=== PATIENT | male | born 1985 | race Caucasian/White ===

== ENCOUNTER 2018-05-22 00:28 | Emergency (ER) | payer OTHER ==
--- NOTE | 2018-05-22 00:53 | EDPHY ---
H & P Time Seen by Provider: 05/22/18 00:46 Smoking Status: Former smoker Constitutional: Initial Vital Signs Temperature (C) 37.0 C 05/22/18 00:38 Heart Rate 91 05/22/18 00:38 Respiratory Rate 16 05/22/18 00:38 Blood Pressure 117/74 05/22/18 00:38 O2 Sat (%) 94 05/22/18 00:38 O2 Delivery Mode Room Air Allergies/Adverse Reactions: Penicillins Allergy (Verified 05/22/18 00:36) Home Medications: Medication Instructions Recorded Adderall Xr 10 mg Capsule 05/22/18 Cyclobenzaprine [Cyclobenzaprine 05/22/18 HCl] LamICTAL 100 MG (*) 05/22/18 Naproxen 05/22/18 clonazePAM [Clonazepam] 05/22/18 Departure - Departure Referrals: Patient,NotPresent [Primary Care Provider] - As per Instructions
[2018-05-22] MEDS ORDERED: CLINDAMYCIN 150MG PREPACK#6 BTL TAKEHOME ONE (01:03)
--- NOTE | 2018-05-22 01:09 | EDPHY ---
H & P Time Seen by Provider: 05/22/18 00:46 HPI/ROS: CHIEF COMPLAINT: tooth ache HISTORY OF PRESENT ILLNESS: Severe lower right mid tooth pain. He notes that the cusps fell off this tooth approximately several weeks ago. He has had no trauma per se. It really was not bother him until 2 days ago. He was able to sleep last night. However the pain is so intense he is unable to sleep tonight despite using excessive doses of ibuprofen. He states it is severe, nonradiating intense sharp pain. He has had no discharge. There has been no foul odor. He has had no difficulty swallowing, nor problems open his mouth. There is no pain to the floor the mouth. As to substance abuse risk going forward, he is at risk due to his underlying bipolar disease as well as anxiety disorder. I have queried the [place] drug monitoring program and he has received six prescriptions for narcotics in the last 12 months: Oxy Scripts #5, 30 tablets October - December = he relates this was for when he injured his back as he has history of 3 ruptured discs. Hydrocodone #1, 5 tablets October. Regarding his anxiety disorder: It is well controlled. He takes Klonopin p.r.n. Which is less than once daily. He is currently in therapy. Further he does have a history element of bed puts him at risk for PTSD but he states that that is under control as well. Discharge no Trismus none Trauma no REVIEW OF SYSTEMS: Gen: No fevers or chills. Respiratory: No cough, no dyspnea. Smoking Status: Former smoker Physical Exam: General: Well-developed well-nourished. Nontoxic. Anxious. As into the room he is huddled in the arms of his girlfriend or spouse and rocking. Holding the side of his right jaw. HEENT: Membranes moist. No foul odor. There is no trismus. There is no drainage within the mouth nor pointing at the alveolar ridge. . There is moderate dental decay. Submandibular adenopathy is noted. There is no actual soft tissue swelling present to the jaw though it is tender both on the alveolar ridge as well as externally. He is able swallow well. Constitutional: Initial Vital Signs Temperature (C) 37.0 C 05/22/18 00:38 Heart Rate 91 05/22/18 00:38 Respiratory Rate 16 05/22/18 00:38 Blood Pressure 117/74 10/21/18 00:38 O2 Sat (%) 94 05/22/18 00:38 O2 Delivery Mode Room Air Allergies/Adverse Reactions: Penicillins Allergy (Verified 05/22/18 00:36) Home Medications: Medication Instructions Recorded Adderall Xr 10 mg Capsule 05/22/18 Clindamycin 300 mg PO QID 10 Days cap 05/22/18 Cyclobenzaprine [Cyclobenzaprine 05/22/18 HCl] LamICTAL 100 MG (*) 05/22/18 Naproxen 05/22/18 Oxycodone HCl 10 mg PO Q6H PRN #4 capsule 05/22/18 clonazePAM [Clonazepam] 05/22/18 Medical Decision Making ED Course/Re-evaluation: On initial encounter I recommended a inferior alveolar nerve block.: Sterile technique. At the inferior alveolar nerve location trigone there was 3 cc of 0.5 Marcaine placed without epinephrine. He tolerated this poorly, reflective of poor pain tolerance. Nonetheless, overtime he started getting moderate relief. Engaged in discussion regarding risks of substance abuse, as no doubt the block will wear off and the Ibuprofen was not effective earlier and the Clinda will take some time to kick in. He has no prior personal history or family history. However his bipolar disease putting at risk. He did take 1 of the Klonopin is a of his spouse so as to medicate the pain tonight. He has been taking ibuprofen 800 mg three times daily. 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 However, he has not been taking Tylenol along with a. Ultimately he suggested that I give him only 3 tablets of pain medicine to go, as he has been on 10 mg in th past ( last dose in December) he will get two of the 5 mg to go and an Rx for 4 , 5mg. Differential Diagnosis: Diagnostic considerations include, but are not limited to, the following: Abscess, facial abscess, facial cellulitis, Matthieu's Angina, Retropharyngeal abscess, deep space facial infection, dental caries. - Data Points Medications Given: Discontinued Medications Clindamycin (Cleocin 150 Mg Prepack#6) 1 btl TAKEHOME EDNOW ONE PRN Reason: Protocol Stop: 05/22/18 01:04 Last Admin: 05/22/18 01:19 Dose: 1 btl Oxycodone HCl (Oxycodone Ir) 20 mg PO EDNOW ONE Stop: 05/22/18 01:40 Last Admin: 05/22/18 01:53 Dose: 20 mg Departure - Departure Disposition: Home, Routine, Self-Care Clinical Impression: Dental abscess Condition: Good Instructions: Clindamycin (By mouth), Oxycodone, Rapid Release (By mouth), Dental Abscess (ED) Additional Instructions: Avoiding hot or cold items as this may likely stimulate the tooth, Tylenol and Advil works well together in combination: 1000 mg Tylenol and 600 mg Advil every 6 hours as needed for the pain. We have sent home 2 tablets of Oxy 5 mg for the pain when the anesthetic wears off. There is also a prescription for 4 more tablets later during the day to help you until the clindamycin starts working. While on the clindamycin, do take yogurt with active cultures 3 times daily to forego bowel problems and diarrhea. If he developed diarrhea, call your family doctor immediately Referrals: Patient,NotPresent [Primary Care Provider] - As per Instructions Prescriptions: Clindamycin 300 mg PO QID 10 Days cap Oxycodone HCl 10 mg PO Q6H PRN #4 capsule PRN Reason: pain
[2018-05-22] MEDS ORDERED: oxyCODONE IR 5 MG TAB PO ONE (01:39)
[2018-05-22 02:02] VITALS: BP 129/81
== END 2018-05-22 02:01 | disposition home or self-care (01) ==
LOC: CED 00:28
PROC: 3E0T3BZ Introduction of Anesthetic Agent into Peripheral Nerves and Plexi, Percutaneous Approach (ICD-10-PCS; principal; 2018-05-22)
DX: K04.7 Periapical abscess without sinus (principal)